=== PATIENT | female | born 1995 | race Caucasian/White ===

== ENCOUNTER 2019-04-24 08:23 | Day surgery (SDC) | payer OTHER ==
[~2019-04-24] VITALS: Ht 177.8 cm; Wt 88.4 kg
--- NOTE | 2019-04-24 09:08 | PREAC ---
Date/Time of Note Date/Time of Note DATE: 04/24/19 TIME: 09:07 Anesthesia Eval and Record Evaluation Time Pre-Procedure Interview DATE: 04/24/19 TIME: 09:07 Age 23 Sex female NPO: 8 hrs Preoperative diagnosis abdominal pain, heartburn Planned procedure EGD Past Medical History Past Medical History: None Surgery & Anesthesia Issues No known issue Meds Anticoagulation: No Beta Violette within 24 hr: No Reason Beta Violette not given: Pt. not on B-Violette Meds reviewed: Yes Allergies Allergies Reviewed: Yes Labs/Studies Labs Reviewed: Reviewed by anesthesiologist test: Negative Pre-procedure Exam Airway: Adequate mouth opening, Adequate thyromental dist Mallampati: Mallampati II Teeth: Normal Lung: Normal Heart: Normal ASA Physical Status ASA physical status: 1 Emergency: None Planned Anesthetic General/MAC: Mask Planned Pain Management Parenteral pain med Pre-operative Attestations Prior to commencing anesthesia and surgery, the patient was re-evaluated, there was verification of: *The patient's identity *The results of appropriate recent lab work and preoperative vital signs *The above evaluation not changing prior to induction *Anesthetic plan, risk benefits, alternative and complications discussed with patient/family; questions answered; patient/family understands, accepts and wishes to proceed. VENU HURST MD Apr 24, 2019 09:08
[2019-04-24] MEDS ORDERED: PROPOFOL 20 ML ONE ×2 (09:12→09:44)
[2019-04-24] MEDS ORDERED: LIDOCAINE 2% (SDV) 5 ML INJ ONE (09:12)
[2019-04-24 09:18] VITALS: Ht 177.8 cm; Wt 88.4 kg
[2019-04-24] MEDS ORDERED: folic acid PO (09:29)
[2019-04-24] MEDS ORDERED: vit D PO (09:29)
[2019-04-24] MEDS ORDERED: iron PO (09:29)
[2019-04-24 09:30] VITALS: BP 110/69; PULSE 97; RESP 20
[2019-04-24] MEDS ORDERED: ONDANSETRON 4 MG INJ IV PRN (09:30)
--- NOTE | 2019-04-24 09:52 | PAC ---
Date/Time of Note Date/Time of Note DATE: 04/24/19 TIME: 09:50 Post-Anesthesia Notes Post-Anesthesia Note Last documented vital signs Vital Signs Date Temp Pulse Resp B/P (MAP) Pulse Ox O2 O2 Flow FiO2 Time Delivery Rate 04/24/19 97.3 97 20 110/69 100 Room Air 09:30 (83) Activity: WNL Respiratory function: WNL Cardiovascular function: WNL Mental status: Baseline Pain reasonably controlled: Yes Hydration appropriate: Yes Nausea/Vomiting absent: Yes Comments BP: 98/58 HR: 78 RR: 15 T: 98 SaO2: 100% VENU HURST MD Apr 24, 2019 09:52
[2019-04-24 10:21] VITALS: BP 117/59; RESP 16
--- NOTE | 2019-04-25 12:09 | CONS ---
DATE OF ADMISSION: 04/24/2019 DATE OF CONSULTATION: PATIENT NAME: EVANGELINA CALLE TYPE OF CONSULTATION: Preoperative gastroenterology. Dear Dr. Zendejas: I thank you very much for this kind referral. HISTORY OF PRESENT ILLNESS: Ms. Evangelina Calle is a 23-year-old female patient who has been referred to me for further evaluation of upper abdominal pain and chronic heartburn not responding to therapy. No past history of peptic ulcer disease. Not on nonsteroidal anti-inflammatory agents. Appetite i s good, and there is no weight loss. The patient had abdominal ultrasound done and according to her it was negative. No history of gallstones or liver disease. The patient also complains of bloating and excessive gas. No history of rectal bleeding. No past history of inflammatory bowel disease or colon neoplasm. Not a hypertensive or diabetic. No heart disease, lung problem or kidney disease. SOCIAL HISTORY: Nonsmoker. No alcohol abuse. FAMILY HISTORY: No family history of gastrointestinal tract neoplasm. ALLERGIES: NO DRUG ALLERGIES. MEDICATIONS: None. PHYSICAL EXAMINATION: GENERAL: She is 5 feet 10 inches tall and weighs 185 pounds. HEART: Normal heart sounds. LUNGS: Clear. ABDOMEN: Soft, no masses. Normal bowel sounds. NEUROLOGIC: Normal neurological exam. IMPRESSION: 1. Upper abdominal pain, not responding to therapy. 2. Chronic heartburn. 3. The patient complains of excessive flatulence. 4. The patient had abdominal ultrasound done and it was negative. 5. The patient is very anxious. PLAN: 1. The patient was strongly advised to reduce the amount of leafy vegetables she consumes and to sammy e lactose-free dairy products because of excessive flatulence. 2. Endoscopic examination for further evaluation of upper abdominal pain and chronic heartburn. 3. Because of the short thick neck the patient has, and because of the fact she is very anxious, she needs monitored anesthesia care for the procedure. The procedure and possible complications are well explained to the patient. She understands and cons ents to the procedure. During upper endoscopy, small-bowel biopsies will be taken to rule out celiac disease. I thank you once again. With warmest personal regards, Dictated By: KIMI GLEASON/NORI Conf#: [id number] DID#: [id number]
== END 2019-04-24 11:01 | disposition home or self-care (01) ==
LOC: GIL 08:23
PROVIDERS: ATTEND Internal Medicine Gastroenterology
DX: K29.50 Unspecified chronic gastritis without bleeding (principal); K21.9 Gastro-esophageal reflux disease without esophagitis
CPT/HCPCS: 43239; 88305; 88312; Z7610